=== PATIENT | female | born 2000 | race Caucasian/White ===

== ENCOUNTER 2022-07-14 17:08 | Emergency (ER) | payer MEDICAID, SELFPAY ==
[2022-07-14 17:29] VITALS: BP 111/67; PULSE 82; RESP 20; TEMP 36.7; O2SAT 97
--- NOTE | 2022-07-14 17:43 | ED.GENADUL_ITS ---
Discharge Plan Disposition Patient Disposition: HOME Condition: Good Discharge Details Clinical Impression: Puncture wound of foot Primary Care Provider: Unknown,Unknown ED Provider: Penny Cobb Home Meds and New Rx's Prescriptions: Continued fluoxetine 20 mg Tablet 20 mg PO DAILY [id number] 1 mg Tablet PO DAILY Discharge Instructions Instructions: Puncture Wound (ED) Additional Instructions: As we discussed, your wound appears to be quite superficial at this time. There is no evidence that you have any retained piece of the nail or other foreign body, wound appears very clean. Please keep bandage over this to help prevent bacteria from rubbing into the wound. Please continue with soaks 3-4 times da rudolph. Please monitor for signs of infection including redness, warmth, drainage, increased pain, fever/chills. If you develop these or other new/worsening symptoms, please seek care urgently once again. Otherwise, please keep your upcoming follow-up appointment and have wound reevaluated at that time. Referrals: Fawad Elkins [ NON-[facility] STAFF PHYSICIAN] - Discharge Data Discharge Date/Time-TO BE ENTERED AT DEPARTURE: 07/14/22 18:36 Medical Decision Making Patient is a pleasant 22-year-old female, 8 months gestation, presenting today after stepping on a nail with her left foot. She reports this occurred less than 45 minutes prior to her evaluation. There was report on the ground, nail thickening out that went through her croc. She does date on tetanus, has had it during her . Denies any numbness or tingling or other injury at time of the incident. States she did see a small amount of blood. Has not washed the wounds. On exam, patient appears nontoxic. She has a 2 to 3 mm wound just proximal to the pinky toe on the plantar surface of the left foot. No active bleeding, eryt cary, warmth, drainage. It appears quite superficial. Her feet are notably dirty. We will wash and reevaluate the wound. With at least the wound appears at this time, do not see need to obtain imaging. Patient also reports that she does work at the nail afterwards and reports that it did appear intact so my concern for retained fragments is very low. I did review up-to-date guidelines regarding the puncture recommendations for antibiotic. Patient has superficial the wound appears, it is unlikely she will require antibiotics we will reevaluate the wound after skin cleansed to ensure that only looks for to base. After patient was able to soak her foot, we did reevaluate the wound. Appears to be a small linear laceration and is easily able to be opened and base is able to be visualized in a bloodless field. No foreign body, very superficial wound. Do not believe the patient needs antibiotics at this point. Tetanus is up-to-date. We discussed continued wound care and encouraged that she continue to soak the foot. She has an upcoming appointment on with her [employer] a speedy I encouraged that she keep this and have him take a look at her foot as well. Strict return precautions were discussed, in particular signs and symptoms of infection. All of her questions and concerns were addressed and she is agreement this plan. HPI General Date/Time Provider Initiated Documentation: 07/14/22 17:42 . Limitations to Documentation: no limitations . Information obtained by: patient, family and RN notes reviewed . History of Present Illness 22 year old F presents to the emergency department with the chief complaint of stepped on nail, left foot, described as mild, with intensity rated at 3. Quality is described as aching, and is localized to the left and lower extremity. Patient reports no radiation. Patient started experiencing this minute(s) and it has been constant. No relieving factors improve symptom(s), No exacerbating factors reported . Patient notes no other symptoms.. Patient did receive the following treatments prior to arrival, none Related Data Home Medications Medication Instructions Recorded Confirmed fluoxetine 20 mg tablet 20 mg PO DAILY 07/14/22 07/14/22 [id number] 1 mg tab PO DAILY 07/14/22 tablet Allergies Allergy/AdvReac Type Severity Reaction Status Date / Time No Known Allergies Allergy Unverified 07/14/22 17:32 General Stated Complaint: Laceration NIRAJ: 4 Review of Systems Constitutional Constitutional: Reports as per HPI, Denies chills and Denies fever(s) Musculoskeletal Musculoskeletal: Reports as per HPI Integumentary/Breasts Skin/Breast: Reports as per HPI Neurologic Neurologic: Reports as per HPI, Denies sensory deficit and Denies paresthesias PFSH All Active Problems (Updated 07/14/22 @ 18:30 by HANNAH Jimenez) Puncture wound of foot (Acute) Social History Smoking/Tobacco Use Status: Never Smoking risk assessment performed?: Yes Alcohol Intake: never Substance use type: does not use Do you feel safe at home: Yes Do you feel safe in your relationship?: Yes Exam Const General: cooperative, healthy appearing, comfortable, no acute distress and well developed Nutritional Appearance: average body habitus and well nourished Orientation: alert and awake Resp Effort & Inspection: normal respiratory effort, able to speak in complete sentences and no respiratory distress Cardio Rate: regular rate Rhythm: regular rhythm Skin Trauma: puncture (superficial linear wound left heal, no bleeding) Neuro General: patient alert and patient awake Cognition: normal cognition Speech: speech normal Gait: normal gait Sensory Exam: no sensory deficits noted Extrem Ankle/foot/toe images: 2 1. Wound appears quite superficial. He is able to separate the wound as it does appear to be fairly linear. No active bleeding. No surrounding swelling, erythema, discharge. No visible or palpable foreign body Psych Appearance: grossly normal and well kempt Mental Status: mental status grossly normal Speech and Movement: speech and movement normal Course Vital Signs Vital signs: Vital Signs Temperature 36.7 C 07/14/22 17:29 Pulse 82 07/14/22 17:29 Respiratory Rate 20 07/14/22 17:29 Blood Pressure 111/67 07/14/22 17:29 Pulse Oximetry 97 07/14/22 17:29 Temperature 36.7 C 07/14/22 17:29 Temperature Source Temporal Artery Scan 07/14/22 17:29 Pulse 82 07/14/22 17:29 Respiratory Rate 20 07/14/22 17:29 Respiratory Effort 07/14/22 17:32 Blood Pressure 111/67 07/14/22 17:29 Blood Pressure Position Sitting 07/14/22 17:29 Pulse Oximetry 97 07/14/22 17:29 Oxygen Delivery Method Room Air 07/14/22 17:29 Oxygen Flow Rate 0 07/14/22 17:29 Pain Level 3 07/14/22 17:29
== END 2022-07-14 18:36 | disposition home or self-care (01) ==
PROVIDERS: Emergency Provider Physician Assistant
DX: O9A.213 Injury, poisoning and certain other consequences of external causes complicating pregnancy, third trimester (principal); S91.332A Puncture wound without foreign body, left foot, initial encounter; W45.0XXA Nail entering through skin, initial encounter; Z3A.32 32 weeks gestation of pregnancy
CPT/HCPCS: 99281; 99282

== ENCOUNTER 2023-04-29 13:16 | Outpatient (REF) | payer SELFPAY | END 2023-04-29 13:17 | disposition home or self-care (01) | LOC: LBN 13:16 | PROVIDERS: Visit Provider Physician Assistant Medical | DX: J02.9 Acute pharyngitis, unspecified (principal) | CPT/HCPCS: 87070 ==

== ENCOUNTER 2024-02-17 18:26 | Emergency (ER) | payer BC, SELFPAY ==
--- NOTE | 2024-02-17 18:15 | RT.EKG_ITS ---
APPROVED REPORT Exam: Resting ECG Reason for Exam: chest pain Patient Location: E HR:84 bpm ECG Measurements Heart Rate 84 AXIS AZ 130 P 71 QRSd 104 QRS 54 QT 364 T 6 QTc 430 Conclusion Sinus rhythm...normal P axis, V-rate 60- 99 Probable left atrial enlargement...P >50mS, <-0.10mV V1 Normal sinus rhythm at a rate of 84 with interventricular conduction delay. QRS 104 ms. AZ and QTc within normal limits. No acute injury pattern. No prior for comparison.
[2024-02-17 18:33] VITALS: BP 121/84; PULSE 86; RESP 18; TEMP 36.7; O2SAT 100
[2024-02-17 18:45] VITALS: PULSE 76
[2024-02-17 18:50] VITALS: PULSE 70
[2024-02-17 19:02] VITALS: RESP 13
[2024-02-17 19:10] VITALS: PULSE 67
[2024-02-17 19:22] LABS: Abs Immature Grans 0.03 10^3/uL (0.0-0.06); Absolute Basophil Count 0.03 10^3/uL (0.0-0.2); Absolute Eosinophil Count 0.11 10^3/uL (0.0-0.7); Absolute Lymphocyte Count 2.13 10^3/uL (1.2-3.4); Absolute Monocyte Count 0.54 10^3/uL (0.1-0.8); Absolute Neutrophil Count 5.89 10^3/uL (1.2-6.7); Basophils % 0.3; Eosinophils % 1.3; HCT 42.6 % (36.0-46.0); HGB 14.4 g/dL (11.2-15.7); Immature Grans % 0.3; Lymphocytes % 24.4; MCH 28.9 pg (27.0-33.0); MCHC 33.8 % (32.0-36.0); MCV 85 fL (80-95); MPV 10.5 fL (8.0-11.0); Monocytes % 6.2; Neutrophils % 67.5; Platelet Count 259 10^3/uL (130-400); RBC 4.99 10^6/uL (3.93-5.22); RDW 11.3 % (11.7-14.6); RDW-SD 35.1 fL; WBC 8.73 10^3/uL (4.4-10.8)
[2024-02-17 19:48] LABS: ALT 23 U/L (14-59); AST 19 U/L (15-37); Albumin 4.3 g/dL (3.4-5.0); Alkaline Phosphatase 100 U/L (46-116); Anion Gap 7.8 mmol/L (3-11); BUN 15 mg/dL (7-18); Bilirubin, Total 0.3 mg/dL (0.2-1.0); CO2 29.2 mmol/L (21.0-32.0); CREATININE 0.8 mg/dL (0.55-1.02); Calcium 9.4 mg/dL (8.5-10.1); Chloride 103 mmol/L (98-107); Estimated GFR 107.44 (mL/min/1.73m2); Glucose 99 mg/dL (74-106); HCG Qual (Serum) Negative; Magnesium 1.9 mg/dL (1.8-2.4); Potassium 3.6 mmol/L (3.5-5.1); Sodium 140 mmol/L (136-145); TSH (W/Ref FT4) 3.56 uIU/mL (0.36-3.74); Total Protein 8.6 g/dL (6.4-8.2)
--- NOTE | 2024-02-17 20:34 | ED.GENADUL_ITS ---
Discharge Plan Disposition Patient Disposition: Home Condition: Stable Discharge Details Clinical Impression: Atypical chest pain Primary Care Provider: Sue Rivera ED Provider: Gloria Nagy Home Meds and New Rx's Prescriptions: New albuterol sulfate 90 mcg/actuation HFA aerosol inhaler 2 puff inhalation Q6H PRNQty: 6.7 0RF Continued fluoxetine 20 mg Tablet 20 mg PO DAILY Discharge Instructions Instructions: Chest Pain (ED) Additional Instructions: You may use albuterol as needed for shortness of breath, do not continue to use it if it does not work with 1 to 2 puffs Always use a spacer if you do choose use the inhaler Follow-up for your Holter monitor Your tests today are reassuring I do recommend following up with your primary care physician and return earlier should you have new or worsening complaints HPI General Date/Time Provider Initiated Documentation: 02/17/24 18:55 . HPI Narrative: This 23-year-old female presents with report of palpitations just prior to arrival today. Reports random pulling sensation and lightheadedness and sweatiness 2 hours prior to arrival. Denies any exertional symptoms. Denies any chest pain or shortness of breath. Patient states she had a similar episode on Monday and was evaluated at [facility]. She was set up for an outpatient Holter monitor which has not been set up yet per patient. She denies known chance of . She denies any recent flights, surgeries, long drives. She has any exogenous hormones. She denies any recent upper respiratory symptoms. Denies any calf pain or swelling. Denies any shortness of breath. Denies any early family history of cardiac disease. Vapes tobacco but denies any illicit drug use or alcohol consumption. Related Data Home Medications Medication Instructions Recorded Confirmed fluoxetine 20 mg tablet 20 mg PO DAILY 07/14/22 02/17/24 albuterol sulfate 90 mcg/actuation 2 puff inhalation Q6H PRN #6.7 02/17/24 aerosol inhaler grams Previous Rx's Medication Instructions Recorded albuterol sulfate 90 mcg/actuation 2 puff inhalation Q6H PRN #6.7 02/17/24 aerosol inhaler grams Allergies Allergy/AdvReac Type Severity Reaction Status Date / Time No Known Allergies Allergy Unverified 02/17/24 18:37 General Stated Complaint: Dizzy/Sync NIRAJ: 3 Course Vital Signs Vital signs: Vital Signs Temperature 36.7 C 02/17/24 18:33 Pulse 86 02/17/24 18:33 Respiratory Rate 18 02/17/24 18:33 Blood Pressure 121/84 02/17/24 18:33 Pulse Oximetry 100 02/17/24 18:33 Temperature 36.7 C 02/17/24 18:33 Temperature Source Temporal Artery Scan 02/17/24 18:33 Pulse 86 02/17/24 18:33 Pulse 67 02/17/24 19:10 Respiratory Rate 13 02/17/24 19:02 Respiratory Effort Normal, Non-Labored 02/17/24 19:02 Respiratory Depth Normal 02/17/24 19:02 Respiratory Pattern Normal 02/17/24 19:02 Blood Pressure 121/84 02/17/24 18:33 Pulse Oximetry 100 02/17/24 18:33 Lab/Test Results Lab/Test Results: Laboratory Tests Range/Units 02/17/24 19:15 WBC (4.4-10.8) 10^3/uL 8.73 RBC (3.93-5.22) 10^6/uL 4.99 Hgb (11.2-15.7) g/dL 14.4 Hct (36.0-46.0) % 42.6 MCV (80-95) fL 85 MCH (27.0-33.0) pg 28.9 MCHC (32.0-36.0) % 33.8 RDW (11.7-14.6) % 11.3 L Plt Count (130-400) 10^3/uL 259 MPV (8.0-11.0) fL 10.5 Immature Gran % 0.3 Neutrophils % 67.5 Lymphocytes % 24.4 Monocytes % 6.2 Eosinophils % 1.3 Basophils % 0.3 Nucleated RBC % (0.0-0.3) % 0.0 Absolute Neutrophils (1.2-6.7) 10^3/uL 5.89 Absolute Lymphocytes (1.2-3.4) 10^3/uL 2.13 Absolute Monocytes (0.1-0.8) 10^3/uL 0.54 Absolute Eosinophils (0.0-0.7) 10^3/uL 0.11 Absolute Basophils (0.0-0.2) 10^3/uL 0.03 Sodium (136-145) mmol/L 140 Potassium (3.5-5.1) mmol/L 3.6 Chloride (98-107) mmol/L 103 Carbon Dioxide (21.0-32.0) mmol/L 29.2 Anion Gap (3-11) mmol/L 7.8 BUN (7-18) mg/dL 15 Creatinine (0.55-1.02) mg/dL 0.8 Est GFR (CKD-EPI 2020) (mL/min/1.73m2) 107.44 Glucose (74-106) mg/dL 99 Calcium (8.5-10.1) mg/dL 9.4 Magnesium (1.8-2.4) mg/dL 1.9 Total Bilirubin (0.2-1.0) mg/dL 0.3 AST (15-37) U/L 19 ALT (14-59) U/L 23 Alkaline Phosphatase (46-116) U/L 100 Total Protein (6.4-8.2) g/dL 8.6 H Albumin (3.4-5.0) g/dL 4.3 TSH (0.36-3.74) uIU/mL 3.56 Serum HCG, Qual Negative Medical Decision Making This 23-year-old female presents with report of some chest discomfort 2 hours prior to arrival, recurrent episode, similar episode on Monday of this week, has not had a Holter monitor placed yet Diagnostic workup ordered, EKG without acute abnormality, CBC, CMP, troponin, and electrolytes within normal limits Patient relatively asymptomatic throughout stay, discussing discharge with patient when she states she tried an inhaler last time she had the episode and she states her symptoms improved I did swab patient with inhaler although she is not exhibiting any wheezing or hypoxia here She is instructed not to continue to use it if it does not help her symptoms and to be reevaluated by her primary care physician on Monday Return precautions reviewed and patient expressed understanding Low risk clinically for pulmonary embolism as patient is not on exogenous hormones, oxygenation is 100%, no respiratory distress, benign exam, lungs clear to auscultation, cardiac rate rhythm regular, alert and oriented x 4, no calf swelling or tenderness, neurovascularly intact bilateral lower extremities Negative PSA Quality:SDOH Health Related Social Needs: No Data to Display PFSH All Active Problems (Updated 02/17/24 @ 20:25 by HANNAH Hernandez) Atypical chest pain (Acute) Social History Smoking/Tobacco Use Status: Current every day Tobacco Type: e-cigarettes Smoking risk assessment performed?: Yes Alcohol Intake: never Substance use type: does not use Do you feel safe at home: Yes Do you feel safe in your relationship?: Yes
[2024-02-17 20:43] VITALS: BP 121/84; PULSE 86; RESP 13; TEMP 36.7; O2SAT 100
== END 2024-02-17 20:44 | disposition home or self-care (01) ==
LOC: ER 20:47
PROVIDERS: Emergency Provider Physician Assistant; PCP Physician Assistant
DX: R07.89 Other chest pain (principal); R42 Dizziness and giddiness; F17.290 Nicotine dependence, other tobacco product, uncomplicated
CPT/HCPCS: 36415; 80053; 93005; 99284; 83735; 84443; 84703; 85025; 93010